=== PATIENT | male | born 1970 | race Caucasian/White ===

== ENCOUNTER 2016-09-01 06:13 | Outpatient (CLI) | payer SELFPAY ==
[~2016-09-01] VITALS: Ht 182.9 cm; Wt 93.0 kg
[2016-09-01] MEDS ORDERED: UBID100C17 PO (12:47)
[2016-09-01] MEDS ORDERED: ATOR10TA66 PO (12:47)
== END 2016-09-01 12:48 ==
LOC: PREOP 06:13
PROVIDERS: ATTEND Surgery
DX: Z01.818 Encounter for other preprocedural examination (principal); Z80.0 Family history of malignant neoplasm of digestive organs

== ENCOUNTER 2016-10-20 05:40 | Outpatient (CLI) | payer BC ==
[~2016-10-20] VITALS: Ht 182.9 cm; Wt 93.0 kg
[~2016-10-20 05:40] MED LIST: ATOR10TA66 PO; UBID100C17 PO
== END 2016-10-20 11:43 ==
LOC: PREOP 05:40
PROVIDERS: ATTEND Surgery
DX: Z01.818 Encounter for other preprocedural examination (principal); Z12.11 Encounter for screening for malignant neoplasm of colon; Z80.0 Family history of malignant neoplasm of digestive organs

== ENCOUNTER 2016-10-24 08:24 | Day surgery (SDC) | payer BC ==
[~2016-10-24] VITALS: Ht 182.9 cm; Wt 93.0 kg
[2016-10-24] MEDS ORDERED: FLUMAZENIL (ROMAZICON) 0.1 MG/ML 5 ML VIAL INJ PRN (08:45)
[2016-10-24] MEDS ORDERED: NALOXONE 0.4 MG/ML 1 ML (NARCAN) VIAL IVP PRN (08:45)
[2016-10-24] MEDS ORDERED: NS IV 500 ML 500 ML IV ONE (08:45)
[2016-10-24 08:50] VITALS: BP 138/98
--- NOTE | 2016-10-24 09:00 | Conscious Sedation/ASA ---
Conscious Sedation Pre-Proced ASA Class: 2 Airway Mallampati Classification: ([place] appropriate class) I. II. III, IV Lungs Heart ASA score ASA 1: a normal healthy patient ASA 2: a patient with a mild systemic disease (mid diabetes, controlled hypertension, obesity ASA 3: a patient with a severe systemic disease that limits activity (angina , COPD, prior Myocardial infarction) ASA 4: a patient with an incapacitating disease that is a constant threat to life (CHF, renal failure) ASA 5: a moribund patient not expected to survive 24 hrs. (ruptured aneurysm) ASA 6: a declared brain patient whose organs are being harvested. For emergent operations, add the letter E after the classification Grade 1 Sedation Plan: Discussed options with patient/fam Note The patient is an appropriate candidate to undergo the planned procedure, sedation, and anesthesia. The patient immediately re-assessed prior to indication. JESSIE CHILDS MD Oct 24, 2016 9:00 am
[2016-10-24] MEDS ORDERED: MIDAZOLAM 2 MG/2 ML (VERSED) VIAL ONE ×3 (09:19)
[2016-10-24] MEDS ORDERED: fentaNYL INJECTION 100 MCG/2 ML AMP ONE ×2 (09:19)
[2016-10-24] MEDS: fentaNYL INJECTION 100 MCG/2 ML AMP IVP PRN ×2 (09:27→09:33)
[2016-10-24] MEDS: MIDAZOLAM 2 MG/2 ML (VERSED) VIAL IVP PRN ×2 (09:28→09:35)
--- NOTE | 2016-10-24 09:45 | Endoscopy Procedure Report ---
Endoscopy Report Date: Oct 24, 2016 Preoperative Diagnosis: screening. Family history of colon cancer Study Performed: Colonoscopy Procedure Instrument: Colonoscope Recommendations: Recommendations: 1.: Colonscopy in 5 years Copy Copies To 1: ARCENIO STRINGER MD, XAVIER M MD Oct 24, 2016 9:45 am
--- NOTE | 2016-10-24 09:46 | Discharge Inst-Simple/Standard ---
Discharge Inst-Standard Discharge Medications New, Converted or Re-Newed RX: Other Patient Instructions/Follow Up Plan of Care/Instructions/FU: rrepeat colonoscopy in 5 years Activity as Tolerated: Yes Discharge Diet: No Restrictions JESSIE CHILDS MD Oct 24, 2016 9:46 am
--- NOTE | 2016-10-24 09:51 | OPERATIVE REPORT ---
PROCEDURE PHYSICIAN: JESSIE CHILDS DATE OF PROCEDURE: 10/24/2016 PROCEDURE: Screening colonoscopy. SURGEON: Dr. Childs INDICATION FOR PROCEDURE: This gentleman came in for screening colonoscopy. He reported a family history of colon cancer in his father. Informed consent was obtained after reviewing the procedure in detail. DESCRIPTION OF PROCEDURE: He was placed in left lateral decubitus position and his vital signs were monitored. Conscious sedation was achieved using Versed and fentanyl. Digital rectal examination was unremarkable. The colonoscope was then introduced into the rectum and advanced all the way up to the cecum. The scope was then withdrawn slowly and the mucosa examined in a systematic fashion. The quality of bowel preparation was reasonable. There was no abnormality. He tolerated the procedure well and was taken back to the nursing area in a stable condition. IMPRESSION: 1. Normal screening colonoscopy. 2. Positive family history. 3. Recommend repeating in 5 years. Job ID: [id number] Dictated Date: 10/24/2016 09:43:54 Rock Picker Date: 10/24/2016 09:48:42 / tanika COLLAZO
[2016-10-24 09:55] VITALS: BP 105/51
[2016-10-24 10:25] VITALS: BP 125/88
[2016-10-24 10:30] VITALS: BP 125/88
== END 2016-10-24 10:30 | disposition home or self-care (01) ==
LOC: ENDO 08:24
PROVIDERS: ATTEND Surgery
DX: Z12.11 Encounter for screening for malignant neoplasm of colon (principal); Z80.0 Family history of malignant neoplasm of digestive organs

== ENCOUNTER 2021-06-09 05:39 | Outpatient (CLI) | payer BC ==
[~2021-06-09] VITALS: Ht 177.8 cm; Wt 91.0 kg
[2021-06-14] MEDS ORDERED: OMEG-154 PO (11:41)
== END 2021-06-15 08:19 | disposition home or self-care (01) ==
LOC: PREOP 05:39
PROVIDERS: ATTEND Internal Medicine
DX: Z01.818 Encounter for other preprocedural examination (principal)

== ENCOUNTER 2021-06-18 08:21 | Day surgery (SDC) | payer BC ==
--- NOTE | 2021-06-08 15:22 | HISTORY AND PHYSICAL ---
DATE OF SERVICE: COLONOSCOPY HISTORY AND PHYSICAL HISTORY OF PRESENT ILLNESS: The patient is a 50-year-old white male seen for initial patient evaluation. His father was diagnosed with colon cancer and succumbed to the disease at the age of 60. He last accomplished colonoscopy [address] Merida. Review of the electronic medical record revealed it to be a normal exam with a recommendation for 5-year screening interval due to family history. He denies bowel habit change. He does have some occasional bright red blood per rectum that he attributes to hemorrhoids for a number of years. He reports that he has put on some weight over the past several years, has been more difficult to keep it down. INTAKE AND DIETARY HISTORY: He admits to drinking at least 64 ounces of soda in the form of Pepsi daily. Otherwise, diet is good. He is active, maintaining rental properties and cattle ranching. PAST SURGICAL HISTORY: He did have surgical repair of a patellar tendon rupture a number of years ago with no other reported past surgical history. MEDICATIONS: He takes no medication. ALLERGIES: Reports no known drug allergies. SOCIAL HISTORY: He reports no past smoking or drinking history. See above. EMPLOYMENT HISTORY: He has three daughters; 17, 15 and 14. FAMILY HISTORY: Most pertinent for colon cancer in his father likely developing in his 50s and he succumbed to the disease at the age of 60. Mother is living with hypertension and history of breast cancer at the age of 75. He has one brother with a history of colon polyps. PHYSICAL EXAMINATION: GENERAL: Reveals a white male who appeared to be in no acute distress. VITAL SIGNS: Weight 207 pounds, 5 feet 10 inches tall. Blood pressure 122/92. HEENT: Unremarkable. Sclerae nonicteric. Oral cavity clear. Dentition good. CHEST: Clear to auscultation. CARDIOVASCULAR: Reveals a regular bradycardia with frequent prematurities. The patient reports wears a fitness tracker and usually runs in the 40s, his norm as long as he has been tracking heart rate. No murmur, S3, S4 noted. ABDOMEN: Soft, supple without mass, organomegaly or tenderness. EXTREMITIES: Reveal no cyanosis, clubbing or edema. SKIN: Evaluation reveals no suspicious nevi. ASSESSMENT AND PLAN: 1. The patient is being set up for routine screening colonoscopy, deemed to be higher than average risk due to a brother with a history of colon polyps and father with colon cancer, who succumbed to the disease at the age of 60. Prep instructions and Suprep kit were given, and questions answered. 2. We did obtain a CBC, chemistry panel, lipid panel and screening PSA. Strongly advised that ideally, he should give up soda, but as a compromise at least cut consumption in half with a goal of further reduction and ultimately abstinence if he wants to enjoy optimum health going forward. Further recommendations pending blood test evaluation. 3. The patient is not COVID vaccinated. Strongly advised getting vaccination, discussing safety and efficacy of the vaccine. Also advised yearly influenza vaccination, which the patient was not willing to comply with at this time. We will plan yearly wellness evaluation as long as blood tests are unremarkable. Job ID: [id number] DocumentID: [id number] Dictated Date: 05/25/2021 06:53:49 Computer Systems Architect Date: 05/25/2021 07:43:55 Dictated By: WINIFRED ARENAS MD
[~2021-06-18] VITALS: Ht 177.8 cm; Wt 91.0 kg
[~2021-06-18 08:21] MED LIST changes: +OMEG-154 PO
[2021-06-18] MEDS ORDERED: LACTATED RINGERS 1,000 ML IV STA (08:22)
[2021-06-18] MEDS ORDERED: LIDOCAINE JELLY 2% 6 ML SYRINGE MM PRN (08:30)
--- NOTE | 2021-06-18 08:35 | Pre-Op Note & Conscious Sedat ---
Pre-Operative Progress Note H&P Reviewed The H&P was reviewed, patient examined and no changes noted. Date H&P Reviewed: Jun 18, 2021 Time H&P Reviewed: 08:35 Conscious Sedation Pre-Proced ASA Score 1 �For ASA 3 and 4: Consider anesthesia and medical clearance.� Also, for patients with a history of failed moderate sedation consider anesthesia.� Airway Lungs Heart ASA score ASA 1: a normal healthy patient ASA 2: a patient with a mild systemic disease (mid diabetes, controlled hypertension, obesity ASA 3: a patient with a severe systemic disease that limits activity (angina, COPD, prior Myocardial infarction) ASA 4: a patient with an incapacitating disease that is a constant threat to life (CHF, renal failure) ASA 5: a moribund patient not expected to survive 24 hrs. (ruptured aneurysm) ASA 6: a declared brain- patient whose organs are being harvested. For emergent operations, add the letter E after the classification Mallampati Classification Grade 2 Sedation Plan Analgesia, Amnesia, Plan communicated to team members, Discussed options with patient/fam, Discussed risks with patient/fam The patient is an appropriate candidate to undergo the planned procedure, sedation, and anesthesia. The patient immediately re-assessed prior to indication. WINIFRED ARENAS MD Jun 18, 2021 08:35
[2021-06-18 08:45] VITALS: BP 153/92
[2021-06-18] MEDS ORDERED: MIDAZOLAM 2 MG/2 ML (VERSED) VIAL ONE (09:49)
[2021-06-18] MEDS ORDERED: PROPOFOL INJECTION 50 ML IV ONE (09:49)
[2021-06-18 10:20] VITALS: BP 110/67
[2021-06-18 10:25] VITALS: BP_SYST 115; BP_SYST 116; BP_DIAS 68; BP_DIAS 85
--- NOTE | 2021-06-18 12:56 | Anesthesia-General Post-Op ---
MAC Patient Condition Mental Status/LOC: Same as Preop Cardiovascular: Satisfactory Nausea/Vomiting: Absent Respiratory: Satisfactory Pain: Controlled Complications: Absent Post Op Complications Complications None Follow Up Care/Instructions Patient Instructions None needed. Anesthesiology Discharge Order Discharge Order Patient is doing well, no complaints, stable vital signs, no apparent adverse anesthesia problems. No complications reported per nursing. TOÑITO EPSTEIN CRNA Jun 18, 2021 12:56
--- NOTE | 2021-06-18 16:28 | OPERATIVE REPORT ---
DATE OF SERVICE: COLONOSCOPY SUMMARY INDICATION FOR THE PROCEDURE: Screening, family history for colon cancer. DESCRIPTION OF PROCEDURE: The patient was placed in the left lateral decubitus position. Prior to undergoing colonoscopy, digital rectal evaluation was performed. Anal sphincter tone was normal. Perianal reflex is intact. Prostate is normal in size and anodular on digital inspection. No abnormalities were noted on digital inspection of anal canal or distal rectal vault. The colonoscope was then inserted into the rectum and under direct visualization advanced to cecum. The cecum was identified by identification of ileocecal valve and cecal strap. Photographic documentation was obtained. Quality of prep was good. FINDINGS: No evidence for internal or external hemorrhoids and the rectum, sigmoid colon, descending colon, splenic flexure, transverse colon and hepatic flexure were unremarkable. There was a sessile 4 x 10 mm adenomatous appearing polyp on the upper lip of the ileocecal valve. It was photographed and biopsied and ablated with minimal blood loss. Ablation was carried out in 2 locations. The cecum of the colon was unremarkable. ASSESSMENT: One adenomatous appearing moderate sized polyp, 4 x 10 mm in size was noted and subsequently ablated with histopathological tissue submission. This is otherwise normal colonoscopy to cecum. Considering this and family history, we will likely be advocating repeat surveillance colonoscopy in 3 years provided there is no evidence for dysplasia. Job ID: [id number] DocumentID: [id number] Dictated Date: 06/18/2021 10:17:40 Supervisor [employer] Date: 06/18/2021 16:28:39 Dictated By: WINIFRED ARENAS MD [facility]
--- NOTE | 2021-07-13 11:13 | Physician Query Clarification ---
PQ-Further Specificity Admission/Discharge Admission Date: Discharge Date: The medical record reflects the following clinical scenario: FINDINGS: No evidence for internal or external hemorrhoids and the rectum, sigmoid colon, descending colon, splenic flexure, transverse colon and hepatic flexure were unremarkable. There was a sessile 4 x 10 mm adenomatous appearing polyp on the upper lip of the ileocecal valve. It was photographed and biopsied and ablated with minimal blood loss. Ablation was carried out in 2 locations. The cecum of the colon was unremarkable. ASSESSMENT: One adenomatous appearing moderate sized polyp, 4 x 10 mm in size was noted and subsequently ablated with histopathological tissue submission. This is otherwise normal colonoscopy to cecum. Considering this and family history, we will likely be advocating repeat surveillance colonoscopy in 3 years provided there is no evidence for dysplasia. Question: Can you further specify the method of polyp removal? 1. Hot biopsy followed by ablation 2. Snare removal followed by ablation 3. Cold biopsy followed by ablation 4. Other, please specify PHYSICIAN RESPONSE Can you specify per above: 1 Please remember a lack of response to the above will prompt a phone page by CDI/Coding staff. In responding to this query, please exercise your independent professional judgment. The purpose of this communication is to more accurately reflect the complexity of your patient�s condition. The fact that a question is asked does not imply that any particular answer is desired or expected. Thank you for your timely response to this clarification. Requestor�s name: Rosita THIS PHYSICIAN QUERY FORM IS A PERMANENT PART OF THE MEDICAL RECORD ROSITA CALDERÓN Jul 13, 2021 11:13 WINIFRED ARENAS MD Jul 14, 2021 16:33
== END 2021-06-18 11:05 | disposition home or self-care (01) ==
LOC: ENDO 08:21
PROVIDERS: ATTEND Internal Medicine
DX: Z12.11 Encounter for screening for malignant neoplasm of colon (principal); D12.0 Benign neoplasm of cecum; Z80.0 Family history of malignant neoplasm of digestive organs; I10 Essential (primary) hypertension
CPT/HCPCS: 88305

== ENCOUNTER → 2022-10-18 | Outpatient (CLI) | payer BC, SELFPAY ==
--- NOTE | 2022-10-18 09:54 | Diagnostic Imaging Report ---
CLINICAL HISTORY: Screening. Hyperlipidemia. COMPARISON: None. TECHNIQUE: Non-contrast enhanced EKG-gated axial images were obtained with a coned down field of view to assess for coronary calcium. Post processing of the images was performed on an independent work station. CTDI volume 5.86 mGy DLP 82.03 mGy*cm FINDINGS: Important Information About Your Scan: The following information is based on an analysis of the coronary arteries only. Calcium deposits do not correspond directly to the percentage of narrowing of the arteries. They do correlated directly to the amount of coronary plaque, and to the risk of future coronary disease. The calcium deposits usually begin to form years before any symptoms develop. Early detection and modification of risk factors, such as smoking and cholesterol intake, can slow the progress of coronary artery disease. A low score suggests a low likelihood of coronary artery disease, but does not exclude the possibility of significant coronary artery narrowing. The results should be discussed with your physician, taking into account other risk factors such as age, gender, family history, diabetes, smoking or high cholesterol levels. Should you ever experience chest pain, difficulty breathing, discomfort radiating into your neck or arm, or discomfort combined with lightheadedness, sweating, fainting or nausea, you should seek prompt medical attention. Calcium Score: Agatston units 0 - 0: No identifiable atherosclerotic plaque 1 - 10: Minimal plaque burden 11 - 100: Mild plaque burden 101 - 400: Moderate plaque burden Greater than 401: Extensive plaque burden. Score Summary: Your total calcium score is 219 Agatston units. CORONARY AJ-130 Left Main artery (LMA) 0 Left Anterior Descending (LAD) 209 Left Circumflex (LCX) 0 Right Coronary Artery (RCA) 2.58 Posterior Descending Artery (PDA) 7.75 Total 219 Agatston units The visualized portions of the lungs demonstrate no focal nodules or masses. There are no pleural or pericardial effusions. The visualized osseous structures are age appropriate. IMPRESSION: 1. CT coronary calcium score is 219 Agatston units 2. Adoption and maintenance of a healthy lifestyle is recommended for all people. This includes regular appropriate exercise and observance of a proper diet, to ensure balanced nutrition and weight control. 3. Tobacco use should be avoided. 4. Hypercholesterolemia has been linked to coronary atherosclerosis. Ensure strict adherence to NCEP (National Cholesterol Education Panel) cholesterol-lowering guidelines. For primary prevention, these include a target goal for total cholesterol of less than 200 mg/dL, HDL cholesterol of greater than 40 mg/dL, triglycerides of less than 200 mg/dL and LDL cholesterol of less than 100 mg/dL Secondary prevention involves more stringent goals. However, please note that these are general recommendations and as with all such matters, the personal family physician should be consulted regarding recommendations appropriate for the individual. Recommend evaluation and treatment for all the other cardiovascular risk factors. Dictated by: Dictated on workstation # [id number]
== END ==
LOC: RAD 07:47
PROVIDERS: ATTEND Otolaryngology Otolaryngology/Facial Plastic Surgery
DX: E78.5 Hyperlipidemia, unspecified (principal)
CPT/HCPCS: 75571

== ENCOUNTER → 2023-06-16 | Outpatient (CLI) | payer BC | LOC: CARD 08:16 | PROVIDERS: ATTEND Internal Medicine | DX: I51.7 Cardiomegaly (principal); R00.1 Bradycardia, unspecified | CPT/HCPCS: 93005 ==